=== PATIENT | female | born 1945 | race Caucasian/White ===

== ENCOUNTER 2021-07-28 11:17 | Inpatient (IN) | payer MEDICARE, OTHER ==
[~2021-07-28] VITALS: Ht 162.6 cm; Wt 50.7 kg
[2021-07-28 13:34] LABS: Basophils # (auto) 0.3 10 ^3/uL (0-0.2); Basophils % (auto) 1.7 % (0.0-2.0); Eosinophils # (auto) 0.1 10 ^3/uL (0-0.8); Eosinophils % (auto) 0.6 % (0.0-7.0); Hematocrit 48.8 % (36.0-46.0); Hemoglobin 16.7 g/dL (12.2-16.2); Lymphocytes % (auto) 12.9 % (10.0-50.0); Mean Corpuscular Hemoglobin 33.8 pg (28.0-32.0); Mean Corpuscular Hgb Conc. 34.2 g/dL (32.0-36.0); Mean Corpuscular Volume 98.8 fL (80.0-100.0); Monocytes # (auto) 1.1 10 ^3/uL (0-1.3); Monocytes % (auto) 6.9 % (0.0-12.0); Neutrophils # (auto) 11.9 10 ^3/uL (1.6-8.6); Neutrophils % (auto) 77.9 % (37.0-80.0); Red Blood Cells 4.94 10^6/uL (4.0-5.20); Red Cell Distribution Width 13.4 % (11.8-14.3); White Blood Cell 15.3 10^3/uL (4.4-10.8)
[2021-07-28 13:50] LABS: INR 1.04 (0.9-1.15); Partial Thromboplastin Time 23.5 sec (23.6-33.0)
[2021-07-28 14:00] LABS: Albumin 3.3 g/dL (3.4-5.0); Calcium 9.1 mg/dL (8.5-10.1); Magnesium 2.4 mg/dL (1.6-2.6); Potassium 3.4 mmol/L (3.5-5.1)
[2021-07-28 14:10] LABS: BUN/Creatinine Ratio 19.8; Bilirubin, Total 0.6 mg/dL (0.2-1.0); Total Protein 6.6 g/dL (6.4-8.2)
[2021-07-28] MEDS ORDERED: cefTRIAXone 1GM/50ML D5W 50 ML IV ONE (21:45)
[2021-07-28] MEDS ORDERED: ALBUTEROL SULF 2.5 MG/0.5ML(0.5%) NEB SOLN NEB PRN (21:45)
[2021-07-28] MEDS ORDERED: ACETAMINOPHEN 325 MG TAB PO PRN (21:45)
[2021-07-28] MEDS ORDERED: ONDANSETRON HCL 4 MG/2 ML VIAL IV PRN (21:45)
[2021-07-28] MEDS: MONTELUKAST SODIUM 10 MG TAB PO SCH (22:00)
[2021-07-28 22:19] LABS: Urine Bacteria FEW /hpf (None Seen); Urine Blood 1+ /uL (Negative); Urine Hyaline Cast FEW /lpf (0 - 2); Urine Specific Gravity 1.023 (1.001-1.035); Urine WBC 1 /hpf (0 - 5)
[2021-07-28] MEDS: METOPROLOL TARTRATE 50 MG TAB PO SCH (22:50)
[2021-07-28] MEDS: ASCORBIC ACID 500 MG TAB PO SCH (22:55)
[2021-07-28] MEDS: ATORVASTATIN 20 MG TAB PO SCH (22:55)
[2021-07-28] MEDS: LISINOPRIL 20 MG TAB PO SCH (22:55)
[2021-07-29] VITALS (7 sets, daily range): BP systolic 13–149; BP diastolic 65–78
[2021-07-29] MEDS ORDERED: MONT-8 PO (02:23)
[2021-07-29] MEDS ORDERED: ACET300T2 PO (02:23)
[2021-07-29] MEDS ORDERED: ATO40T PO (02:23)
[2021-07-29] MEDS ORDERED: METO1TAB9 PO (02:23)
[2021-07-29] MEDS ORDERED: CHOL20007 PO (02:23)
[2021-07-29] MEDS ORDERED: PANT40TA2 PO (02:23)
[2021-07-29] MEDS ORDERED: BACL10TA PO (02:23)
[2021-07-29] MEDS ORDERED: SUVO1TAB4 PO (02:23)
[2021-07-29] MEDS ORDERED: LISI40TA11 PO (02:23)
[2021-07-29 05:37] LABS: Basophils # (auto) 0 10 ^3/uL (0-0.2); Basophils % (auto) 0.5 % (0.0-2.0); Eosinophils # (auto) 0.1 10 ^3/uL (0-0.8); Hematocrit 45.2 % (36.0-46.0); Hemoglobin 15.6 g/dL (12.2-16.2); Lymphocytes # (auto) 2.6 10 ^3/uL (0.4-5.4); Lymphocytes % (auto) 24.4 % (10.0-50.0); Mean Corpuscular Hgb Conc. 34.5 g/dL (32.0-36.0); Mean Corpuscular Volume 98.4 fL (80.0-100.0); Monocytes % (auto) 9.4 % (0.0-12.0); Neutrophils # (auto) 6.8 10 ^3/uL (1.6-8.6); Neutrophils % (auto) 64.7 % (37.0-80.0); Red Blood Cells 4.59 10^6/uL (4.0-5.20); Red Cell Distribution Width 13.7 % (11.8-14.3); White Blood Cell 10.5 10^3/uL (4.4-10.8)
[2021-07-29 05:58] LABS: BUN/Creatinine Ratio 30.6; Calcium 8.7 mg/dL (8.5-10.1); Potassium 3.6 mmol/L (3.5-5.1)
[2021-07-29] MEDS ORDERED: PANTOPRAZOLE 40 MG TAB PO SCH (10:00)
[2021-07-29] MEDS: ENOXAPARIN SOD 30 MG/0.3 ML SYRINGE SC SCH (10:59)
[2021-07-29] MEDS: cefTRIAXone 1GM/50ML D5W 50 ML IV SCH (10:59)
[2021-07-29] MEDS: METOPROLOL TARTRATE 50 MG TAB PO SCH ×2 (11:00→21:35)
[2021-07-29] MEDS: ASCORBIC ACID 500 MG TAB PO SCH ×2 (11:00→21:34)
[2021-07-29] MEDS: ZINC SULFATE 220mg CAP or TAB PO SCH (11:00)
[2021-07-29] MEDS: LISINOPRIL 20 MG TAB PO SCH ×2 (11:01→21:36)
[2021-07-29] MEDS: PANTOPRAZOLE 40 MG TAB PO SCH (11:02)
[2021-07-29] MEDS: MONTELUKAST SODIUM 10 MG TAB PO SCH (21:36)
[2021-07-29] MEDS: ATORVASTATIN 20 MG TAB PO SCH (21:36)
[2021-07-29] MEDS ORDERED: LOPERAMIDE HCL 2 MG CAP PO PRN (22:15)
[2021-07-29] MEDS ORDERED: TEMAZEPAM 15 MG CAP PO ONE (22:15)
[2021-07-30 05:00] VITALS: BP 131/66
[2021-07-30 08:33] VITALS: BP 134/69
[2021-07-30] MEDS: ENOXAPARIN SOD 30 MG/0.3 ML SYRINGE SC SCH (09:29)
[2021-07-30] MEDS: PANTOPRAZOLE 40 MG TAB PO SCH (09:30)
[2021-07-30] MEDS: ASCORBIC ACID 500 MG TAB PO SCH (09:30)
[2021-07-30] MEDS: METOPROLOL TARTRATE 50 MG TAB PO SCH (09:30)
[2021-07-30] MEDS: ZINC SULFATE 220mg CAP or TAB PO SCH (09:30)
[2021-07-30] MEDS: LISINOPRIL 20 MG TAB PO SCH (09:30)
[2021-07-30] MEDS: cefTRIAXone 1GM/50ML D5W 50 ML IV SCH (09:31)
[2021-07-30 11:06] VITALS: BP 134/69
[2021-07-30 12:42] VITALS: BP 126/74
== END 2021-07-30 12:45 | disposition home or self-care (01) | DRG 871 ==
LOC: ER 11:17 → OVERFLOW 21:37 → CENTRAL 07-29 00:46
PROVIDERS: ADMIT Nurse Practitioner; ATTEND Family Medicine
DX: A41.9 Sepsis, unspecified organism (principal); G93.41 Metabolic encephalopathy; N39.0 Urinary tract infection, site not specified; I10 Essential (primary) hypertension; D72.829 Elevated white blood cell count, unspecified; E78.00 Pure hypercholesterolemia, unspecified; E78.5 Hyperlipidemia, unspecified; E86.0 Dehydration; J44.9 Chronic obstructive pulmonary disease, unspecified; Z90.710 Acquired absence of both cervix and uterus; Z90.49 Acquired absence of other specified parts of digestive tract; R55 Syncope and collapse; Z20.822 Contact with and (suspected) exposure to COVID-19
CPT/HCPCS: 36415; 70450; 71045; 80048; 80053; 81001; 83605; 83735; 85025; 85610; 85730; 87040; 87086; 87088; 87186; 87426; 93005; 96365; 99291; G0378; J0696

== ENCOUNTER → 2021-09-14 | Outpatient (CLI) | payer MEDICARE ==
[~2021-09-14] MED LIST: ACET300T2 PO; ATO40T PO; BACL10TA PO; CHOL20007 PO; LISI40TA11 PO; METO1TAB9 PO; MONT-8 PO; PANT40TA2 PO; SUVO1TAB4 PO
[2021-09-14 11:52] LABS: Urine Bacteria FEW /hpf (None Seen); Urine Blood Negative /uL (Negative); Urine Hyaline Cast FEW /lpf (0 - 2); Urine Mucus FEW (None Seen); Urine Specific Gravity 1.024 (1.001-1.035); Urine WBC 8 /hpf (0 - 5)
[2021-09-14 12:25] LABS: Cholesterol 168 mg/dL (< 200); HDL Cholesterol 57 mg/dL (40-59); LDL Cholesterol 76 mg/dL (< 100); Triglycerides 172 mg/dL (< 150)
== END | disposition home or self-care (01) ==
LOC: LAB 11:01
PROVIDERS: ATTEND Internal Medicine
DX: E11.9 Type 2 diabetes mellitus without complications (principal); E78.5 Hyperlipidemia, unspecified; Z12.11 Encounter for screening for malignant neoplasm of colon
CPT/HCPCS: 36415; 80061; 81001

== ENCOUNTER 2021-11-29 16:16 | Inpatient (IN) | payer MEDICARE ==
[~2021-11-29] VITALS: Ht 162.6 cm; Wt 52.4 kg
[2021-11-29 17:54] LABS: Urine Bacteria NONE SEEN /hpf (None Seen); Urine Blood 1+ /uL (Negative); Urine Hyaline Cast FEW /lpf (0 - 2); Urine Mucus FEW (None Seen); Urine Specific Gravity 1.021 (1.001-1.035); Urine WBC 2 /hpf (0 - 5)
[2021-11-29 18:42] LABS: Basophils # (auto) 0.2 10 ^3/uL (0-0.2); Basophils % (auto) 1.5 % (0.0-2.0); Eosinophils # (auto) 0 10 ^3/uL (0-0.8); Eosinophils % (auto) 0.4 % (0.0-7.0); Hematocrit 46.3 % (36.0-46.0); Hemoglobin 15.8 g/dL (12.2-16.2); Lymphocytes # (auto) 1.1 10 ^3/uL (0.4-5.4); Lymphocytes % (auto) 9.9 % (10.0-50.0); Mean Corpuscular Hemoglobin 32.9 pg (28.0-32.0); Mean Corpuscular Hgb Conc. 34.1 g/dL (32.0-36.0); Mean Corpuscular Volume 96.5 fL (80.0-100.0); Monocytes # (auto) 0.5 10 ^3/uL (0-1.3); Monocytes % (auto) 4.3 % (0.0-12.0); Neutrophils # (auto) 9.3 10 ^3/uL (1.6-8.6); Neutrophils % (auto) 83.9 % (37.0-80.0); Red Cell Distribution Width 13.5 % (11.8-14.3)
[2021-11-29 18:59] LABS: Albumin 3.9 g/dL (3.4-5.0); Calcium 9.4 mg/dL (8.5-10.1); Magnesium 2.2 mg/dL (1.6-2.6); Potassium 3.4 mmol/L (3.5-5.1)
[2021-11-29 19:01] LABS: BUN/Creatinine Ratio 18.8
[2021-11-29 19:06] LABS: Bilirubin, Total 0.6 mg/dL (0.2-1.0); Total Protein 6.8 g/dL (6.4-8.2)
[2021-11-29] MEDS ORDERED: cefTRIAXone 1GM/50ML D5W 50 ML IV ONE (22:15)
[2021-11-29] MEDS ORDERED: ONDANSETRON HCL 4 MG/2 ML VIAL IV PRN (23:15)
[2021-11-30] MEDS: SODIUM CHLORIDE 0.9% 1,000 ML IV SCH ×2 (01:01→16:53)
[2021-11-30 08:10] LABS: Basophils # (auto) 0 10 ^3/uL (0-0.2); Basophils % (auto) 0.3 % (0.0-2.0); Eosinophils # (auto) 0.1 10 ^3/uL (0-0.8); Eosinophils % (auto) 1.1 % (0.0-7.0); Hematocrit 42.7 % (36.0-46.0); Hemoglobin 14.6 g/dL (12.2-16.2); Lymphocytes # (auto) 1.9 10 ^3/uL (0.4-5.4); Lymphocytes % (auto) 20.7 % (10.0-50.0); Mean Corpuscular Hemoglobin 32.6 pg (28.0-32.0); Mean Corpuscular Hgb Conc. 34.1 g/dL (32.0-36.0); Mean Corpuscular Volume 95.7 fL (80.0-100.0); Monocytes # (auto) 0.8 10 ^3/uL (0-1.3); Monocytes % (auto) 9.3 % (0.0-12.0); Neutrophils # (auto) 6.2 10 ^3/uL (1.6-8.6); Neutrophils % (auto) 68.6 % (37.0-80.0); Red Blood Cells 4.47 10^6/uL (4.0-5.20); Red Cell Distribution Width 13.3 % (11.8-14.3)
[2021-11-30] MEDS: hydrALAZINE HCL 20 MG/ML VL IV PRN ×2 (08:29→18:19)
[2021-11-30 08:37] LABS: Albumin 3.2 g/dL (3.4-5.0); Calcium 8.8 mg/dL (8.5-10.1)
[2021-11-30 08:42] LABS: BUN/Creatinine Ratio 16.7; Bilirubin, Total 0.4 mg/dL (0.2-1.0); Total Protein 5.9 g/dL (6.4-8.2)
[2021-11-30 08:59] LABS: Potassium 2.8 mmol/L (3.5-5.1)
[2021-11-30 09:08] LABS: Alcohol, Urine < 3.0 mg/dL (0-10); Amphetamine Screen, Urine NEGATIVE (NEGATIVE); Barbiturate Scree,Urine NEGATIVE (NEGATIVE); Benzodiazephine Screen, Urine NEGATIVE (NEGATIVE); Cannabinoid Screen, Urine NEGATIVE (NEGATIVE); Cocaine Screen, Urine NEGATIVE (NEGATIVE); Opiate Scree,Urine NEGATIVE (NEGATIVE); Phencyclidine Screen, Urine NEGATIVE (NEGATIVE)
[2021-11-30] MEDS: FAMOTIDINE 20 MG TAB PO SCH (10:20)
[2021-11-30] MEDS: METOPROLOL SUCCINATE XL 50 MG TAB PO SCH (10:20)
[2021-11-30] MEDS: ENOXAPARIN SOD 40 MG/0.4 ML SYRINGE SC SCH (10:20)
[2021-11-30] MEDS: LISINOPRIL 20 MG TAB PO SCH (10:20)
[2021-11-30] MEDS: NICOTINE 14 MG/24HR TOPICAL PATCH TD SCH (10:21)
[2021-11-30] MEDS ORDERED: POTASSIUM EFFERVESENT TAB 25 MEQ GT ONE (10:45)
[2021-11-30] MEDS: POTASSIUM CHL 20MEQ/100ML 100 ML IV SCH ×3 (10:50→16:53)
[2021-11-30 14:47] LABS: BUN/Creatinine Ratio 16.2; Calcium 8.7 mg/dL (8.5-10.1); Potassium 4.1 mmol/L (3.5-5.1)
[2021-11-30] MEDS ORDERED: ASPITAB34 PO (16:43)
[2021-11-30] MEDS ORDERED: DIPH25CA29 PO (16:43)
[2021-11-30] MEDS ORDERED: SUMA100T15 PO (16:43)
[2021-11-30] MEDS ORDERED: TIOT1AER INH (16:43)
[2021-11-30] MEDS ORDERED: ALBU108A5 INH (16:43)
[2021-11-30] MEDS ORDERED: LORazepam 2MG/ML-1ML VIAL IV PRN (20:30)
[2021-11-30 21:16] LABS: Cholesterol 148 mg/dL (< 200); Triglycerides 167 mg/dL (< 150)
[2021-11-30 21:18] LABS: HDL Cholesterol 53 mg/dL (40-59); LDL Cholesterol 70 mg/dL (< 100)
[2021-11-30] MEDS ORDERED: ATORVASTATIN 20 MG TAB PO SCH (22:00)
[2021-11-30 23:46] VITALS: BP 139/72
[2021-12-01] MEDS: ACETAMINOPHEN 325 MG TAB PO PRN ×2 (01:56→09:59)
[2021-12-01] MEDS ORDERED: TEMAZEPAM 15 MG CAP PO ONE (02:15)
[2021-12-01 05:00] VITALS: BP 142/65
[2021-12-01] MEDS: SODIUM CHLORIDE 0.9% 1,000 ML IV SCH ×2 (08:35→17:37)
[2021-12-01 08:36] VITALS: BP 129/76
[2021-12-01] MEDS: METOPROLOL SUCCINATE XL 50 MG TAB PO SCH (09:57)
[2021-12-01] MEDS: LISINOPRIL 20 MG TAB PO SCH (09:57)
[2021-12-01] MEDS: FAMOTIDINE 20 MG TAB PO SCH (09:59)
[2021-12-01] MEDS: NICOTINE 14 MG/24HR TOPICAL PATCH TD SCH (10:06)
[2021-12-01 12:30] VITALS: BP 140/78
[2021-12-01] MEDS: ACETAMINOPHEN/CODEINE#3 (300/30mg) TAB PO PRN ×2 (12:39→18:06)
[2021-12-01] MEDS: ENOXAPARIN SOD 40 MG/0.4 ML SYRINGE SC SCH (12:39)
[2021-12-01 16:42] VITALS: BP 140/69
[2021-12-01] MEDS: DexAMETHasone INJECTION 10 MG in D5W 5% 50 ML IV SCH (17:36)
[2021-12-01] MEDS: METOCLOPRAMIDE HCL 10 MG TAB PO SCH (21:07)
[2021-12-01 22:00] VITALS: BP 148/67
[2021-12-02] MEDS ORDERED: TEMAZEPAM 15 MG CAP PO ONE (00:45)
[2021-12-02] MEDS: SODIUM CHLORIDE 0.9% 1,000 ML IV SCH ×3 (01:15→12:30)
[2021-12-02] MEDS: ACETAMINOPHEN/CODEINE#3 (300/30mg) TAB PO PRN (04:50)
[2021-12-02 05:00] VITALS: BP 125/59
[2021-12-02] MEDS: METOCLOPRAMIDE HCL 10 MG TAB PO SCH ×2 (05:03→15:00)
[2021-12-02 06:34] LABS: Basophils # (auto) 0 10 ^3/uL (0-0.2); Basophils % (auto) 0.1 % (0.0-2.0); Eosinophils # (auto) 0 10 ^3/uL (0-0.8); Hematocrit 41.1 % (36.0-46.0); Hemoglobin 13.8 g/dL (12.2-16.2); Lymphocytes # (auto) 1.1 10 ^3/uL (0.4-5.4); Lymphocytes % (auto) 12.9 % (10.0-50.0); Mean Corpuscular Hemoglobin 32.6 pg (28.0-32.0); Mean Corpuscular Hgb Conc. 33.7 g/dL (32.0-36.0); Mean Corpuscular Volume 96.6 fL (80.0-100.0); Monocytes # (auto) 0.1 10 ^3/uL (0-1.3); Monocytes % (auto) 1.3 % (0.0-12.0); Neutrophils # (auto) 7.1 10 ^3/uL (1.6-8.6); Neutrophils % (auto) 85.7 % (37.0-80.0); Red Blood Cells 4.25 10^6/uL (4.0-5.20); Red Cell Distribution Width 13.3 % (11.8-14.3); White Blood Cell 8.3 10^3/uL (4.4-10.8)
[2021-12-02 06:56] LABS: Calcium 8.6 mg/dL (8.5-10.1)
[2021-12-02 07:00] LABS: BUN/Creatinine Ratio 20.5
[2021-12-02 09:00] VITALS: BP 148/60
[2021-12-02] MEDS: METOPROLOL SUCCINATE XL 50 MG TAB PO SCH ×2 (09:32→10:00)
[2021-12-02] MEDS: FAMOTIDINE 20 MG TAB PO SCH (09:32)
[2021-12-02] MEDS: LISINOPRIL 20 MG TAB PO SCH (09:34)
[2021-12-02] MEDS: ENOXAPARIN SOD 40 MG/0.4 ML SYRINGE SC SCH (09:34)
[2021-12-02] MEDS: NICOTINE 14 MG/24HR TOPICAL PATCH TD SCH (09:35)
[2021-12-02] MEDS ORDERED: PRED20TA2 PO (10:19)
[2021-12-02] MEDS: DexAMETHasone INJECTION 10 MG in D5W 5% 50 ML IV SCH (11:40)
[2021-12-02 13:00] VITALS: BP 125/50
== END 2021-12-02 18:27 | disposition home or self-care (01) | DRG 71 ==
LOC: ER 16:16 → OVERFLOW 23:03 → WEST WING 11-30 22:44 → TELE-WESTW 12-01 07:11
PROVIDERS: ADMIT Internal Medicine; ATTEND Internal Medicine Pulmonary Disease
DX: G93.41 Metabolic encephalopathy (principal); N39.0 Urinary tract infection, site not specified; E78.5 Hyperlipidemia, unspecified; R19.7 Diarrhea, unspecified; M54.50 Low back pain, unspecified; F17.210 Nicotine dependence, cigarettes, uncomplicated; G43.009 Migraine without aura, not intractable, without status migrainosus; G44.40 Drug-induced headache, not elsewhere classified, not intractable; Z79.82 Long term (current) use of aspirin; Z85.09 Personal history of malignant neoplasm of other digestive organs; Z82.0 Family history of epilepsy and other diseases of the nervous system; Z82.49 Family history of ischemic heart disease and other diseases of the circulatory system; Z82.5 Family history of asthma and other chronic lower respiratory diseases; Z90.49 Acquired absence of other specified parts of digestive tract; Z90.710 Acquired absence of both cervix and uterus
CPT/HCPCS: 36415; 70450; 70551; 71045; 80048; 80053; 80061; 80307; 81001; 82140; 82962; 83605; 83735; 83880; 84484; 85025; 87040; 87086; 87493; 93005; 93306; 93886; 95819; 96365; 96372; G0378; J0696; J1100; J2405; J3480; J7060

== ENCOUNTER → 2022-02-05 | Outpatient (CLI) | payer MEDICARE ==
[~2022-02-05] MED LIST changes: +ALBU108A5 INH; +ASPITAB34 PO; +DIPH25CA29 PO; +PRED20TA2 PO; +SUMA100T15 PO; +TIOT1AER INH
[2022-02-05 12:16] LABS: Basophils # (auto) 0 10 ^3/uL (0-0.2); Basophils % (auto) 0.7 % (0.0-2.0); Eosinophils # (auto) 0.3 10 ^3/uL (0-0.8); Eosinophils % (auto) 3.6 % (0.0-7.0); Hematocrit 41.5 % (36.0-46.0); Hemoglobin 13.6 g/dL (12.2-16.2); Lymphocytes # (auto) 1.6 10 ^3/uL (0.4-5.4); Mean Corpuscular Hemoglobin 31.7 pg (28.0-32.0); Mean Corpuscular Hgb Conc. 32.9 g/dL (32.0-36.0); Mean Corpuscular Volume 96.5 fL (80.0-100.0); Monocytes # (auto) 0.7 10 ^3/uL (0-1.3); Monocytes % (auto) 10.3 % (0.0-12.0); Neutrophils # (auto) 4.5 10 ^3/uL (1.6-8.6); Neutrophils % (auto) 63.4 % (37.0-80.0); Nucleated Red Blood Cells % 0.1 %; Red Cell Distribution Width 14.5 % (11.8-14.3); White Blood Cell 7.1 10^3/uL (4.4-10.8)
[2022-02-05 12:59] LABS: Urine Bacteria NONE SEEN /hpf (None Seen); Urine Blood Negative /uL (Negative); Urine Mucus FEW (None Seen); Urine Specific Gravity 1.021 (1.001-1.035); Urine WBC 2 /hpf (0 - 5)
== END | disposition home or self-care (01) ==
LOC: LAB 11:49
PROVIDERS: ATTEND Internal Medicine
DX: I10 Essential (primary) hypertension (principal); E78.5 Hyperlipidemia, unspecified; J44.9 Chronic obstructive pulmonary disease, unspecified; R73.03 Prediabetes
CPT/HCPCS: 36415; 81001; 85025; 85652

== ENCOUNTER → 2022-07-02 | Outpatient (CLI) | payer MEDICARE ==
[2022-07-02 15:18] LABS: BUN/Creatinine Ratio 25.3; Calcium 8.7 mg/dL (8.5-10.1); Potassium 4.1 mmol/L (3.5-5.1)
== END | disposition home or self-care (01) ==
LOC: LAB 14:24
PROVIDERS: ATTEND Internal Medicine
DX: J44.9 Chronic obstructive pulmonary disease, unspecified (principal); R73.03 Prediabetes
CPT/HCPCS: 36415; 80048

== ENCOUNTER → 2022-07-08 | Outpatient (CLI) | payer BC | END | disposition home or self-care (01) | LOC: LAB 12:04 | PROVIDERS: ATTEND Internal Medicine | DX: J44.9 Chronic obstructive pulmonary disease, unspecified (principal); R73.03 Prediabetes | CPT/HCPCS: 36415; 83036; 84443 ==